=== PATIENT | male | born 1980 | race Two or more races ===

== ENCOUNTER 2016-12-18 15:56 | Emergency (ER) | payer BC ==
[~2016-12-18] VITALS: Ht 162.6 cm; Wt 74.0 kg
[2016-12-18 16:03] VITALS: BP 125/68
[2016-12-18] MEDS ORDERED: IBUPROFEN 800 MG TABLET. PO ONE (16:15)
--- NOTE | 2016-12-18 16:23 | PHYS DOC ---
Past Medical History Past Medical History: No Pertinent History Past Surgical History: No Surgical History Alcohol Use: None Drug Use: None Adult General Chief Complaint Chief Complaint: COUGH HPI HPI Patient is a 36 year old male presents to the emergency department with a 2 day history of fever and cough. States he's had general body aches. States he's had no abdominal pain, no nausea, no vomiting. He is using [id number] Tylenol and Motrin intermittently for symptom management. Review of Systems Review of Systems Constitutional: Fever without chills Eyes: Denies change in visual acuity, redness, or eye pain [] HENT: Sore throat Respiratory: Nonproductive cough without shortness of breath or wheezing. Cardiovascular: Denies chest pain, heart palpitations, edema GI: Denies abdominal pain, nausea, vomiting, bloody stools or diarrhea [] : Denies dysuria or hematuria [] Musculoskeletal: Myalgias Integument: Denies rash or skin lesions [] Neurologic: Denies headache, focal weakness or sensory changes [] Endocrine: Denies polyuria or polydipsia [] Current Medications Current Medications Current Medications Medications (Trade) Dose Ordered Sig/Cb Start Time Stop Time Status Last Admin Dose Admin Acetaminophen (Tylenol) 1,000 mg 1X ONCE 12/18/16 17:30 12/18/16 17:31 DC 12/18/16 17:37 1,000 MG Azithromycin (Zithromax) 500 mg 1X ONCE 12/18/16 18:45 12/18/16 18:46 Ceftriaxone Sodium 1 gm/ Sodium Chloride 50 ml @ 100 mls/hr Q24H 12/19/16 18:00 Ceftriaxone Sodium 50 ml @ 100 mls/hr 1X ONCE 12/18/16 18:30 12/18/16 18:59 Ibuprofen (Motrin) 800 mg 1X ONCE 12/18/16 16:15 12/18/16 16:16 DC 12/18/16 16:22 800 MG Sodium Chloride 1,000 ml @ 1,000 mls/hr 1X ONCE 12/18/16 17:30 12/18/16 18:29 12/18/16 17:37 1,000 MLS/HR Allergies Allergies Allergies Coded Allergies Type Severity Reaction Last Updated Verified No Known Drug Allergies 12/18/16 No Physical Exam Physical Exam Constitutional: Well developed, well nourished, no acute distress, non-toxic appearance. [] HENT: Normocephalic, atraumatic, bilateral external ears normal, mucous membranes dry, posterior pharynx erythematous with exudate, uvula midline, no oral exudates, nose normal. [] Eyes: PERRLA, EOMI, conjunctiva normal, no discharge. [] Neck: Normal range of motion, no tenderness, supple without lymphadenopathy, no stridor. [] Cardiovascular:Heart rate regular rhythm, no murmur [] Lungs & Thorax: Bilateral breath sounds clear to auscultation [] Abdomen: Bowel sounds normal, soft, no tenderness, no masses, no pulsatile masses. [] Skin: Warm, dry, no erythema, no rash. [] Back: No tenderness, no CVA tenderness. [] Extremities: No tenderness, no cyanosis, no clubbing, ROM intact, no edema. [] Neurologic: Alert and oriented X 3, normal motor function, normal sensory function, no focal deficits noted. [] Psychologic: Affect normal, judgement normal, mood normal. [] Current Patient Data Vital Signs Vital Signs Date Time Temp Pulse Resp B/P (MAP) Pulse Ox O2 Delivery O2 Flow Rate FiO2 12/18/16 16:03 101.2 126 20 125/68 (87) 96 Room Air 101.2 Lab Values Laboratory Tests Test 12/18/16 16:19 12/18/16 17:42 Influenza Type A Antigen Negative (NEGATIVE) Influenza Type B Antigen Negative (NEGATIVE) White Blood Count 10.4 x10^3/uL (4.0-11.0) Red Blood Count 5.37 x10^6/uL (4.30-5.70) Hemoglobin 13.5 g/dL (13.0-17.5) Hematocrit 40.8 % (39.0-53.0) Mean Corpuscular Volume 76 fL (79-100) L Mean Corpuscular Hemoglobin 25 pg (25-35) Mean Corpuscular Hemoglobin Concent 33 g/dL (31-37) Red Cell Distribution Width 13.8 % (11.5-14.5) Platelet Count 167 x10^3/uL (140-400) Neutrophils (%) (Auto) 71 % (31-73) Lymphocytes (%) (Auto) 16 % (24-48) L Monocytes (%) (Auto) 11 % (0-9) H Eosinophils (%) (Auto) 1 % (0-3) Basophils (%) (Auto) 1 % (0-3) Neutrophils # (Auto) 7.4 x10^3uL (1.8-7.7) Lymphocytes # (Auto) 1.7 x10^3/uL (1.0-4.8) Monocytes # (Auto) 1.1 x10^3/uL (0.0-1.1) Eosinophils # (Auto) 0.1 x10^3/uL (0.0-0.7) Basophils # (Auto) 0.1 x10^3/uL (0.0-0.2) Sodium Level 139 mmol/L (136-145) Potassium Level 3.8 mmol/L (3.5-5.1) Chloride Level 101 mmol/L (98-107) Carbon Dioxide Level 27 mmol/L (21-32) Anion Gap 11 (6-14) Blood Urea Nitrogen 14 mg/dL (8-26) Creatinine 1.2 mg/dL (0.7-1.3) Estimated GFR (Cockcroft-Gault) 68.5 BUN/Creatinine Ratio 12 (6-20) Glucose Level 103 mg/dL (70-99) H Calcium Level 8.9 mg/dL (8.5-10.1) Total Bilirubin 0.7 mg/dL (0.2-1.0) Aspartate Amino Transferase (AST) 14 U/L (15-37) L Alanine Aminotransferase (ALT) 28 U/L (16-63) Alkaline Phosphatase 84 U/L (46-116) Total Protein 7.7 g/dL (6.4-8.2) Albumin 3.3 g/dL (3.4-5.0) L Albumin/Globulin Ratio 0.8 (1.0-1.7) L Laboratory Tests 12/18/16 17:42 Laboratory Tests 12/18/16 17:42 EKG EKG [] Radiology/Procedures Radiology/Procedures Chest x-ray reviewed by , TIFFANY infiltrate Course & Med Decision Making Course & Med Decision Making 8744: Rapid strep negative, influence a negative. Patient's temperature is 103 orally. He is received 800 mg of ibuprofen by mouth without relief of fever. Heart rate 114, blood pressure 132/76. Patient denies headache, neck pain, abdominal pain, nausea, vomiting. States history of myalgias with cough. Will obtain chest x-ray and CBC, chemistry, UA. Tylenol 1gm PO Rocephin 1 g IV, Zithromax 500 mg by mouth in the emergency department thank you was looking all over the page. I'll be to discharge patient on Zithromax 500 mg daily for 4 days starting tomorrow. He's return the emergency department his symptoms or concerns or worsening of current condition. Pertinent Labs and Imaging studies reviewed. (See chart for details) [] Dragon Disclaimer Dragon Disclaimer This electronic medical record was generated, in whole or in part, using a voice recognition dictation system. Departure Departure Impression: Primary Impression: Pneumonia Disposition: 01 HOME, SELF-CARE Condition: STABLE [facility]errals: [facility] Patient Instructions: Pneumonia, Adult Scripts Azithromycin (ZITHROMAX TRI-ISRAEL) 500 Mg Tablet 500 MG PO DAILY, #4 TAB Prov: LUIS ENRIQUE TERAN APRN 12/18/16 Problem Qualifiers Primary Impression: Pneumonia Pneumonia type: due to unspecified organism Laterality: right Lung location : lower lobe of lung Qualified Codes: J18.1 - Lobar pneumonia, unspecified organism LUIS ENRIQUE TERAN APRN Dec 18, 2016 16:23
[2016-12-18 17:19] LABS: OBC FLU VALID
[2016-12-18] MEDS ORDERED: ACETAMINOPHEN 500 MG TABLET PO ONE (17:30)
[2016-12-18] MEDS ORDERED: IV NORMAL SALINE 1000ML BAG 1,000 ML IV ONE (17:30)
[2016-12-18 17:52] LABS: BASO # 0.1 x10^3/uL (0.0-0.2); BASO % 1 % (0-3); EOS % 1 % (0-3); HEMATOCRIT 40.8 % (39.0-53.0); HEMOGLOBIN 13.5 g/dL (13.0-17.5); LYMPH # 1.7 x10^3/uL (1.0-4.8); LYMPH % 16 % (24-48); MEAN CORPUSCULAR HEMOGLOBIN 25 pg (25-35); MEAN CORPUSCULAR HGB CONC 33 g/dL (31-37); MEAN CORPUSCULAR VOLUME 76 fL (79-100); MONO % 11 % (0-9); NEUT % 71 % (31-73); PLATELET COUNT 167 x10^3/uL (140-400); RED BLOOD COUNT 5.37 x10^6/uL (4.30-5.70); RED CELL DISTRIBUTION WIDTH 13.8 % (11.5-14.5); WHITE BLOOD COUNT 10.4 x10^3/uL (4.0-11.0)
[2016-12-18 18:09] LABS: CALCIUM 8.9 mg/dL (8.5-10.1); CREATININE 1.2 mg/dL (0.7-1.3); GFR 68.5; POTASSIUM 3.8 mmol/L (3.5-5.1)
[2016-12-18 18:14] LABS: ALBUMIN 3.3 g/dL (3.4-5.0); ALBUMIN/GLOBULIN RATIO 0.8 (1.0-1.7); TOTAL BILIRUBIN 0.7 mg/dL (0.2-1.0); TOTAL PROTEIN 7.7 g/dL (6.4-8.2)
[2016-12-18] MEDS ORDERED: AZIT500T2 PO (18:23)
[2016-12-18] MEDS ORDERED: AZITHROMYCIN 250 MG TABLET. PO ONE (18:45)
--- NOTE | 2016-12-19 06:27 | EKG ---
[facility] [address] [place] [id number] Test Date: 2016-12-18 Test Time: 16:07:18 Pat Name: HANNAH RESTREPO Department: Room: Gender: M [employer] Liaison: : 1980 Requested By: LUIS ENRIQUE TERAN Order Number: [id number] Reading MD: Debra Bruce Measurements Intervals Parsons Rate: 120 P: 0 SD: 132 QRS: 66 QRSD: 86 T: 16 QT: 280 QTc: 400 Interpretive Statements SINUS TACHYCARDIA INCOMPLETE RIGHT BUNDLE BRANCH BLOCK Electronically Signed On 12-19-2016 18:53:41 CDT by Derba Bruce
--- NOTE | 2016-12-19 07:51 | RAD ---
Indication fever. Cough. PA and lateral views of the chest were obtained. No prior imaging of the chest is available. The heart and pulmonary vessels appear unremarkable. The mediastinum appears normal. There is volume loss in the right lower lobe compatible with atelectasis or pneumonia. The left lung is clear. There is no significant pleural fluid in either lung. IMPRESSION: Volume loss in the right lower lobe compatible with atelectasis or pneumonia
[2016-12-19 08:17] LABS: NEGATIVE OBC STREP NEG; POSITIVE OBC STREP POS
== END 2016-12-18 18:58 | disposition home or self-care (01) ==
LOC: ER 15:56
DX: J18.1 Lobar pneumonia, unspecified organism (principal)
CPT/HCPCS: 36415; 71020; 80053; 85025; 87070; 87804; 87880; 93005; 96361; 96365; 99285; J0690; J7030; Q0144